=== PATIENT | female | born 1970 | race African-American/Black ===

== ENCOUNTER 2016-12-10 10:01 | Inpatient (IN) | payer MEDICAID ==
[~2016-12-10] VITALS: Ht 160 cm; Wt 88.5 kg
[2016-12-10] MEDS ORDERED: ONDANSETRON HCL 4MG/2ML VIAL IV STA (11:35)
[2016-12-10] MEDS ORDERED: MORPHINE SULFATE 4 MG/ML CPJ (NOT FOR IM USE) IV STA (11:35)
[2016-12-10] MEDS ORDERED: SODIUM CHLORIDE 0.9% 1,000 ML IV ONE (11:35)
[2016-12-10 12:34] LABS: CHLORIDE 100 mEq/L (98-107); INR 1.2; PROTHROMBIN TIME 12.9 sec
[2016-12-10 12:38] LABS: CARBON DIOXIDE 26 mEq/L (21-32)
[2016-12-10 12:52] LABS: BASOPHILS % 0.6 % (0.0-2.0); EOSINOPHILS % 0.1 % (0.0-5.0); HEMATOCRIT. 28.1 % (36.0-48.0); HEMOGLOBIN. 8.7 g/dL (12.0-16.0); MEAN CORPUSCULAR HEMOGLOBIN 20.2 pg (28.0-32.0); MEAN CORPUSCULAR VOLUME 65.1 fL (81.0-99.0); MEAN PLATELET VOLUME 7.4 fl (7.4-10.4); MONOCYTES % 7.7 % (2.0-8.0); NEUTROPHILS % 80.6 % (40.0-76.0); PLATELET 840 x1000/uL (130-400); RED BLOOD CELL COUNT 4.31 mill/uL (4.2-5.4); RED CELL DISTRIBUTION WIDTH 17.2 % (11.6-14.6)
[2016-12-10 13:40] LABS: CLARITY URINE CLOUDY (CLEAR); COLOR URINE DARK YELLOW (YELLOW); GLUCOSE URINE NEGATIVE (NEGATIVE); KETONES URINE TRACE (NEGATIVE); LEUKOCYTE ESTERASE URINE 1+ (NEGATIVE); NITRITE URINE NEGATIVE (NEGATIVE); OCCULT BLOOD URINE 2+ (NEGATIVE); PH URINE 5.5 (4.5-8.0); PROTEIN URINE 1+ (NEGATIVE); SPECIFIC GRAVITY URINE 1.024 (1.005-1.030)
[2016-12-10] MEDS ORDERED: MORPHINE SULFATE 4 MG/ML CPJ (NOT FOR IM USE) IV ONE ×2 (13:45→16:45)
[2016-12-10 14:01] LABS: PLATELET ESTIMATE MARKEDLY INCREASED
[2016-12-10 14:29] LABS: HCG SCREEN NEGATIVE
[2016-12-10] MEDS ORDERED: SODIUM CHLORIDE 0.9% 100 ML IV ONE (16:30)
[2016-12-10] MEDS ORDERED: LEVOFLOXACIN 750MG PREMIX 150 ML IV ONE (16:45)
[2016-12-10] MEDS ORDERED: METRONIDAZOLE 500 MG PREMIX 100 ML IV ONE (16:45)
[2016-12-10] MEDS ORDERED: MAGNESIUM/ALUMINUM HYDROXIDE/SIMETHICONE 30ML UDC PO PRN (17:45)
[2016-12-10] MEDS ORDERED: HYDROCODONE/ACETAMINOPHEN 5/325MG TABLET PO PRN (17:45)
[2016-12-10] MEDS ORDERED: IPRATROPIUM/ALBUTEROL 0.5-3(2.5)MG/3ML NEB INH PRN (17:45)
[2016-12-10] MEDS ORDERED: CLONIDINE 0.1MG TABLET PO PRN (17:45)
[2016-12-10 18:56] LABS: CHLORIDE 101 mEq/L (98-107)
[2016-12-10 18:59] LABS: CARBON DIOXIDE 27 mEq/L (21-32)
[2016-12-10] MEDS: ACETAMINOPHEN 325MG TABLET PO PRN (19:45)
[2016-12-10] MEDS ORDERED: KETOROLAC 30MG/ML VIAL IV ONE (20:00)
[2016-12-10 22:35] LABS: CREATINE KINASE 158 IU/L (26-192); CREATINE KINASE MB FRACTION < 0.5 ng/mL (0.5-3.6); TROPONIN I < 0.02 ng/mL (0.00-0.04)
[2016-12-11] VITALS (11 sets, daily range): BP systolic 99–111; BP diastolic 51–71
[2016-12-11 00:42] LABS: *AMPHETAMINES SCREEN URINE NEGATIVE (NEGATIVE); *BARBITURATES SCREEN URINE NEGATIVE (NEGATIVE); *BENZODIAZEPINES SCREEN URINE NEGATIVE (NEGATIVE); *COCAINE SCREEN URINE NEGATIVE (NEGATIVE); METHADONE URINE SCREEN NEGATIVE (NEGATIVE); PHENCYCLIDINE URINE SCREEN NEGATIVE (NEGATIVE)
[2016-12-11 00:53] LABS: CANNABINOID URINE SCREEN PRESUMTIVE POSITIVE (NEGATIVE); OPIATES URINE SCREEN PRESUMTIVE POSITIVE (NEGATIVE)
[2016-12-11] MEDS: SODIUM CHLORIDE 0.9% 1,000 ML IV SCH ×3 (00:54→23:58)
[2016-12-11] MEDS: MORPHINE SULFATE 2 MG/ML CPJ (NOT FOR IM USE) IV PRN ×4 (03:50→19:17)
[2016-12-11] MEDS: METRONIDAZOLE 500 MG PREMIX 100 ML IV SCH ×3 (05:09→23:57)
[2016-12-11 06:18] LABS: BASOPHILS % 0.3 % (0.0-2.0); HEMATOCRIT. 25.3 % (36.0-48.0); HEMOGLOBIN. 7.9 g/dL (12.0-16.0); LYMPHOCYTES % 8.2 % (20.0-50.0); MEAN CORPUSCULAR HEMOGLOBIN 20.5 pg (28.0-32.0); MEAN CORPUSCULAR VOLUME 65.5 fL (81.0-99.0); MEAN PLATELET VOLUME 7.4 fl (7.4-10.4); MONOCYTES % 5.1 % (2.0-8.0); NEUTROPHILS % 86.4 % (40.0-76.0); PLATELET 738 x1000/uL (130-400); RED BLOOD CELL COUNT 3.86 mill/uL (4.2-5.4); RED CELL DISTRIBUTION WIDTH 17.2 % (11.6-14.6)
[2016-12-11 06:25] LABS: CREATINE KINASE 198 IU/L (26-192); CREATINE KINASE MB FRACTION 1.1 ng/mL (0.5-3.6); HDL CHOLESTEROL 19 mg/dL (40-59); LDL CHOLESTEROL 123 mg/dL (5-100); TROPONIN I < 0.02 ng/mL (0.00-0.04)
[2016-12-11] MEDS: ENOXAPARIN 40MG/0.4ML SYR SUBCUT SCH (08:37)
[2016-12-11] MEDS: LEVOFLOXACIN 500MG PREMIX 100 ML IV SCH (16:49)
[2016-12-11] MEDS ORDERED: LEVOFLOXACIN 500MG PREMIX 100 ML IV SCH (17:45)
[2016-12-11] MEDS: ATORVASTATIN CALCIUM 10MG TABLET PO SCH (20:34)
[2016-12-12] VITALS: BP 111/61
[2016-12-12] MEDS: MORPHINE SULFATE 2 MG/ML CPJ (NOT FOR IM USE) IV PRN ×5 (00:15→21:23)
[2016-12-12 04:00] VITALS: BP 113/60
[2016-12-12] MEDS: METRONIDAZOLE 500 MG PREMIX 100 ML IV SCH ×3 (06:10→21:04)
[2016-12-12 06:47] LABS: BASOPHILS % 0.4 % (0.0-2.0); EOSINOPHILS % 0.1 % (0.0-5.0); HEMATOCRIT. 28.6 % (36.0-48.0); HEMOGLOBIN. 8.9 g/dL (12.0-16.0); LYMPHOCYTES % 11.8 % (20.0-50.0); MEAN CORPUSCULAR HEMOGLOBIN 20.8 pg (28.0-32.0); MEAN CORPUSCULAR VOLUME 67.1 fL (81.0-99.0); MEAN PLATELET VOLUME 7.6 fl (7.4-10.4); MONOCYTES % 3.9 % (2.0-8.0); NEUTROPHILS % 83.8 % (40.0-76.0); PLATELET 711 x1000/uL (130-400); RED BLOOD CELL COUNT 4.27 mill/uL (4.2-5.4); RED CELL DISTRIBUTION WIDTH 18.4 % (11.6-14.6)
[2016-12-12 08:00] VITALS: BP 120/70
[2016-12-12 08:13] LABS: CARBON DIOXIDE 25 mEq/L (21-32); CHLORIDE 103 mEq/L (98-107)
[2016-12-12] MEDS: SODIUM CHLORIDE 0.9% 1,000 ML IV SCH (09:23)
[2016-12-12] MEDS: ENOXAPARIN 40MG/0.4ML SYR SUBCUT SCH (09:24)
[2016-12-12] MEDS ORDERED: POTASSIUM CHLORIDE 20MEQ TABLET SR PO NR (10:34)
[2016-12-12 12:00] VITALS: BP 124/66
[2016-12-12] MEDS: LEVOFLOXACIN 500MG PREMIX 100 ML IV SCH (15:11)
[2016-12-12 16:00] VITALS: BP 119/75
[2016-12-12] MEDS ORDERED: MAGNESIUM 1 G PREMIX 100 ML IV NR (16:00)
[2016-12-12] MEDS: ACETAMINOPHEN 325MG TABLET PO PRN (17:52)
[2016-12-12 20:00] VITALS: BP 107/69
[2016-12-12] MEDS: ATORVASTATIN CALCIUM 10MG TABLET PO SCH (21:04)
[2016-12-13] VITALS (11 sets, daily range): BP systolic 105–130; BP diastolic 62–78
[2016-12-13] MEDS: SODIUM CHLORIDE 0.9% 1,000 ML IV SCH ×3 (03:08→21:38)
[2016-12-13] MEDS: METRONIDAZOLE 500 MG PREMIX 100 ML IV SCH ×3 (05:24→21:37)
[2016-12-13] MEDS: MORPHINE SULFATE 2 MG/ML CPJ (NOT FOR IM USE) IV PRN ×4 (05:37→20:42)
[2016-12-13 06:56] LABS: BASOPHILS % 0.4 % (0.0-2.0); EOSINOPHILS % 0.2 % (0.0-5.0); HEMATOCRIT. 26.8 % (36.0-48.0); HEMOGLOBIN. 8.4 g/dL (12.0-16.0); LYMPHOCYTES % 10.1 % (20.0-50.0); MEAN CORPUSCULAR HEMOGLOBIN 20.6 pg (28.0-32.0); MEAN CORPUSCULAR VOLUME 65.8 fL (81.0-99.0); MEAN PLATELET VOLUME 7.6 fl (7.4-10.4); MONOCYTES % 6.3 % (2.0-8.0); PLATELET 644 x1000/uL (130-400); RED BLOOD CELL COUNT 4.07 mill/uL (4.2-5.4); RED CELL DISTRIBUTION WIDTH 18.2 % (11.6-14.6)
[2016-12-13 07:54] LABS: CARBON DIOXIDE 24 mEq/L (21-32); CHLORIDE 106 mEq/L (98-107)
[2016-12-13] MEDS: ENOXAPARIN 40MG/0.4ML SYR SUBCUT SCH (08:51)
[2016-12-13] MEDS: ACETAMINOPHEN 325MG TABLET PO PRN (11:32)
[2016-12-13] MEDS: LEVOFLOXACIN 500MG PREMIX 100 ML IV SCH (15:24)
[2016-12-13] MEDS: ATORVASTATIN CALCIUM 10MG TABLET PO SCH (20:43)
[2016-12-14] VITALS: BP 123/77
[2016-12-14] MEDS: MORPHINE SULFATE 2 MG/ML CPJ (NOT FOR IM USE) IV PRN ×5 (01:54→20:45)
[2016-12-14 04:00] VITALS: BP 108/60
[2016-12-14] MEDS: METRONIDAZOLE 500 MG PREMIX 100 ML IV SCH ×3 (05:31→23:01)
[2016-12-14 06:49] LABS: HEMATOCRIT 29.1 % (36.0-48.0); HEMOGLOBIN 9.4 g/dL (12.0-16.0)
[2016-12-14 07:19] VITALS: BP 115/71
[2016-12-14 08:36] LABS: TOTAL IRON BINDING CAPACITY 142 ug/dL (250-450)
[2016-12-14] MEDS ORDERED: DIATR MEGLU/DIATRIZOATE SOLN 30ML PO SCH (09:45)
[2016-12-14] MEDS: SODIUM CHLORIDE 0.9% 1,000 ML IV SCH ×2 (09:58→18:32)
[2016-12-14] MEDS: ENOXAPARIN 40MG/0.4ML SYR SUBCUT SCH (09:59)
[2016-12-14 10:31] LABS: HEMATOCRIT. 30.1 % (36.0-48.0); HEMOGLOBIN. 9.5 g/dL (12.0-16.0); MEAN CORPUSCULAR HEMOGLOBIN 21.3 pg (28.0-32.0); MEAN CORPUSCULAR VOLUME 67.6 fL (81.0-99.0); PLATELET 637 x1000/uL (130-400); RED BLOOD CELL COUNT 4.45 mill/uL (4.2-5.4); RED CELL DISTRIBUTION WIDTH 19.8 % (11.6-14.6)
[2016-12-14 11:50] VITALS: BP 117/69
[2016-12-14 14:37] LABS: NUCLEATED RED BLOOD CELLS 1 /100 WBC
[2016-12-14 14:38] LABS: PLATELET ESTIMATE SLIGHTLY INCREASED
[2016-12-14 16:02] VITALS: BP 124/70
[2016-12-14] MEDS: LEVOFLOXACIN 500MG PREMIX 100 ML IV SCH (16:35)
[2016-12-14 20:00] VITALS: BP 142/79
[2016-12-14] MEDS: ATORVASTATIN CALCIUM 10MG TABLET PO SCH (20:34)
[2016-12-15] VITALS: BP 137/76
[2016-12-15] MEDS: SODIUM CHLORIDE 0.9% 1,000 ML IV SCH ×2 (00:54→16:36)
[2016-12-15] MEDS: MORPHINE SULFATE 2 MG/ML CPJ (NOT FOR IM USE) IV PRN ×6 (00:55→23:39)
[2016-12-15] MEDS ORDERED: DIATR MEGLU/DIATRIZOATE SOLN 30ML PO NR (03:15)
[2016-12-15 04:00] VITALS: BP 145/82
[2016-12-15] MEDS: METRONIDAZOLE 500 MG PREMIX 100 ML IV SCH ×3 (05:17→21:18)
[2016-12-15 07:11] LABS: BASOPHILS % 0.6 % (0.0-2.0); EOSINOPHILS % 0.6 % (0.0-5.0); HEMATOCRIT. 29.1 % (36.0-48.0); HEMOGLOBIN. 9.4 g/dL (12.0-16.0); LYMPHOCYTES % 14.3 % (20.0-50.0); MEAN CORPUSCULAR HEMOGLOBIN 21.6 pg (28.0-32.0); MEAN CORPUSCULAR VOLUME 67.2 fL (81.0-99.0); MEAN PLATELET VOLUME 7.5 fl (7.4-10.4); MONOCYTES % 5.8 % (2.0-8.0); NEUTROPHILS % 78.7 % (40.0-76.0); PLATELET 631 x1000/uL (130-400); RED BLOOD CELL COUNT 4.33 mill/uL (4.2-5.4); RED CELL DISTRIBUTION WIDTH 19.7 % (11.6-14.6)
[2016-12-15 08:00] VITALS: BP 124/82
[2016-12-15] MEDS: ENOXAPARIN 40MG/0.4ML SYR SUBCUT SCH (08:11)
[2016-12-15] MEDS: ONDANSETRON HCL 4MG/2ML VIAL IV PRN (12:32)
[2016-12-15] MEDS: FERROUS SULFATE 325MG TABLET PO SCH ×2 (12:32→17:50)
[2016-12-15] MEDS ORDERED: IOHEXOL-300 100 ML BOTTLE ONE (14:13)
[2016-12-15] MEDS ORDERED: SODIUM CHLORIDE 0.9% 10ML VIAL ONE (14:13)
[2016-12-15] MEDS: LEVOFLOXACIN 500MG PREMIX 100 ML IV SCH (16:36)
[2016-12-15 20:00] VITALS: BP 116/72
[2016-12-15] MEDS: ATORVASTATIN CALCIUM 10MG TABLET PO SCH (21:18)
[2016-12-15] MEDS: ASCORBIC ACID 500 MG TABLET PO SCH (21:18)
[2016-12-15 23:34] VITALS: BP 124/70
[2016-12-16] VITALS (11 sets, daily range): BP systolic 113–140; BP diastolic 67–95
[2016-12-16] MEDS: MORPHINE SULFATE 2 MG/ML CPJ (NOT FOR IM USE) IV PRN ×3 (03:50→20:18)
[2016-12-16] MEDS: ACETAMINOPHEN 325MG TABLET PO PRN (03:50)
[2016-12-16] MEDS: SODIUM CHLORIDE 0.9% 1,000 ML IV SCH ×2 (03:53→10:38)
[2016-12-16] MEDS: METRONIDAZOLE 500 MG PREMIX 100 ML IV SCH ×3 (05:17→22:35)
[2016-12-16 06:31] LABS: BASOPHILS % 0.8 % (0.0-2.0); EOSINOPHILS % 0.7 % (0.0-5.0); HEMOGLOBIN. 10.3 g/dL (12.0-16.0); MEAN CORPUSCULAR HEMOGLOBIN 21.6 pg (28.0-32.0); MEAN CORPUSCULAR VOLUME 68.3 fL (81.0-99.0); MEAN PLATELET VOLUME 7.5 fl (7.4-10.4); MONOCYTES % 5.3 % (2.0-8.0); NEUTROPHILS % 78.2 % (40.0-76.0); PLATELET 703 x1000/uL (130-400); RED BLOOD CELL COUNT 4.77 mill/uL (4.2-5.4)
[2016-12-16 07:10] LABS: HEMATOCRIT. 32.6 % (36.0-48.0)
[2016-12-16 07:39] LABS: CARBON DIOXIDE 27 mEq/L (21-32); CHLORIDE 99 mEq/L (98-107)
[2016-12-16] MEDS: FERROUS SULFATE 325MG TABLET PO SCH ×3 (08:50→17:40)
[2016-12-16] MEDS: ENOXAPARIN 40MG/0.4ML SYR SUBCUT SCH (08:50)
[2016-12-16] MEDS: ASCORBIC ACID 500 MG TABLET PO SCH ×2 (08:50→21:00)
[2016-12-16] MEDS ORDERED: DIPHENHYDRAMINE 50MG/ML VIAL ONE (12:24)
[2016-12-16] MEDS ORDERED: FENTANYL CITRATE/PF 50MCG/ML 2ML VIAL ONE (12:25)
[2016-12-16] MEDS ORDERED: POTASSIUM CHLORIDE INJ 40 MEQ in DEXT 5% WATER 500 ML IV SCH (13:00)
[2016-12-16] MEDS ORDERED: SODIUM BICARBONATE 4% (2.4MEQ) 5ML VIAL IV ONE (13:43)
[2016-12-16] MEDS ORDERED: LIDOCAINE HCL 1% 20ML VIAL (Pyxis) INJ ONE (13:43)
[2016-12-16] MEDS ORDERED: SODIUM CHLORIDE 0.9% 10ML VIAL ONE (13:43)
[2016-12-16] MEDS ORDERED: FENTANYL CITRATE/PF 50MCG/ML 2ML VIAL IV SCH (13:45)
[2016-12-16] MEDS ORDERED: DIPHENHYDRAMINE 50MG/ML VIAL IV SCH (13:45)
[2016-12-16] MEDS: ONDANSETRON HCL 4MG/2ML VIAL IV PRN (20:15)
[2016-12-16] MEDS: LEVOFLOXACIN 500MG PREMIX 100 ML IV SCH (20:20)
[2016-12-16] MEDS: ATORVASTATIN CALCIUM 10MG TABLET PO SCH (21:00)
[2016-12-17] VITALS (8 sets, daily range): BP systolic 118–134; BP diastolic 77–84
[2016-12-17] MEDS: MORPHINE SULFATE 2 MG/ML CPJ (NOT FOR IM USE) IV PRN ×6 (00:52→23:39)
[2016-12-17] MEDS: FERROUS SULFATE 325MG TABLET PO SCH ×3 (05:16→18:14)
[2016-12-17] MEDS: ONDANSETRON HCL 4MG/2ML VIAL IV PRN (06:02)
[2016-12-17] MEDS: METRONIDAZOLE 500 MG PREMIX 100 ML IV SCH ×3 (06:11→21:48)
[2016-12-17] MEDS: SODIUM CHLORIDE 0.9% 1,000 ML IV SCH ×2 (06:13→18:14)
[2016-12-17 06:57] LABS: BASOPHILS % 0.6 % (0.0-2.0); EOSINOPHILS % 0.5 % (0.0-5.0); HEMATOCRIT. 35.4 % (36.0-48.0); HEMOGLOBIN. 11.1 g/dL (12.0-16.0); LYMPHOCYTES % 18.5 % (20.0-50.0); MEAN CORPUSCULAR HEMOGLOBIN 21.4 pg (28.0-32.0); MEAN CORPUSCULAR VOLUME 68.4 fL (81.0-99.0); MEAN PLATELET VOLUME 7.6 fl (7.4-10.4); MONOCYTES % 4.2 % (2.0-8.0); NEUTROPHILS % 76.2 % (40.0-76.0); PLATELET 739 x1000/uL (130-400); RED BLOOD CELL COUNT 5.18 mill/uL (4.2-5.4); RED CELL DISTRIBUTION WIDTH 20.9 % (11.6-14.6)
[2016-12-17 07:45] LABS: CARBON DIOXIDE 28 mEq/L (21-32); CHLORIDE 97 mEq/L (98-107)
[2016-12-17] MEDS: ASCORBIC ACID 500 MG TABLET PO SCH ×2 (08:50→21:53)
[2016-12-17] MEDS: ENOXAPARIN 40MG/0.4ML SYR SUBCUT SCH (08:50)
[2016-12-17] MEDS ORDERED: POTASSIUM CHLORIDE INJ 40 MEQ in DEXT 5% WATER 250 ML IV NR (12:00)
[2016-12-17] MEDS: LEVOFLOXACIN 500MG PREMIX 100 ML IV SCH (18:14)
[2016-12-17] MEDS: ATORVASTATIN CALCIUM 10MG TABLET PO SCH (21:48)
[2016-12-17] MEDS: ACETAMINOPHEN 325MG TABLET PO PRN (21:48)
[2016-12-18 04:00] VITALS: BP 127/87
[2016-12-18] MEDS: MORPHINE SULFATE 2 MG/ML CPJ (NOT FOR IM USE) IV PRN (04:56)
[2016-12-18 06:16] LABS: BASOPHILS % 0.6 % (0.0-2.0); EOSINOPHILS % 0.7 % (0.0-5.0); HEMATOCRIT. 31.9 % (36.0-48.0); HEMOGLOBIN. 10.2 g/dL (12.0-16.0); LYMPHOCYTES % 20.2 % (20.0-50.0); MEAN CORPUSCULAR HEMOGLOBIN 21.9 pg (28.0-32.0); MEAN CORPUSCULAR VOLUME 68.2 fL (81.0-99.0); MEAN PLATELET VOLUME 7.4 fl (7.4-10.4); NEUTROPHILS % 71.5 % (40.0-76.0); PLATELET 674 x1000/uL (130-400); RED BLOOD CELL COUNT 4.67 mill/uL (4.2-5.4); RED CELL DISTRIBUTION WIDTH 20.9 % (11.6-14.6)
[2016-12-18 06:19] LABS: CARBON DIOXIDE 29 mEq/L (21-32); CHLORIDE 102 mEq/L (98-107)
[2016-12-18] MEDS: SODIUM CHLORIDE 0.9% 1,000 ML IV SCH (06:29)
[2016-12-18] MEDS: METRONIDAZOLE 500 MG PREMIX 100 ML IV SCH (06:29)
[2016-12-18 08:00] VITALS: BP 123/84
[2016-12-18] MEDS: ASCORBIC ACID 500 MG TABLET PO SCH (08:11)
[2016-12-18] MEDS: FERROUS SULFATE 325MG TABLET PO SCH ×2 (08:11→12:24)
[2016-12-18] MEDS: ENOXAPARIN 40MG/0.4ML SYR SUBCUT SCH (08:12)
[2016-12-18] MEDS: ONDANSETRON HCL 4MG/2ML VIAL IV PRN (08:17)
[2016-12-18 11:20] VITALS: BP 121/78
[2016-12-18 11:38] VITALS: BP 121/78
[2016-12-18] MEDS: ACETAMINOPHEN 325MG TABLET PO PRN (12:24)
[2016-12-18] MEDS ORDERED: METOCLOPRAMIDE HCL 5MG TABLET PO NR (12:37)
[2016-12-18 13:11] LABS: HGB A 97.7 % (94.0-98.0); HGB A2 2.3 % (0.7-3.1); HGB SOLUBILITY Negative (Negative)
== END 2016-12-18 13:50 | disposition home or self-care (01) | DRG 229 ==
LOC: ER 12:05 → 8WST 16:35 → ENRESERV 22:10
PROVIDERS: ADMIT Internal Medicine; ATTEND Internal Medicine
PROC: 30233N1 Transfusion of Nonautologous Red Blood Cells into Peripheral Vein, Percutaneous Approach (ICD-10-PCS; principal; 2016-12-11)
PROC: 0WJJ3ZZ Inspection of Pelvic Cavity, Percutaneous Approach (ICD-10-PCS; 2016-12-16)
DX: K57.80 Diverticulitis of intestine, part unspecified, with perforation and abscess without bleeding (principal); R65.11 Systemic inflammatory response syndrome (SIRS) of non-infectious origin with acute organ dysfunction; E43 Unspecified severe protein-calorie malnutrition; N13.30 Unspecified hydronephrosis; N39.0 Urinary tract infection, site not specified; R71.0 Precipitous drop in hematocrit; E83.42 Hypomagnesemia; R16.0 Hepatomegaly, not elsewhere classified; F12.90 Cannabis use, unspecified, uncomplicated; K80.20 Calculus of gallbladder without cholecystitis without obstruction; D50.9 Iron deficiency anemia, unspecified; D72.829 Elevated white blood cell count, unspecified; D75.89 Other specified diseases of blood and blood-forming organs; E87.6 Hypokalemia; I25.10 Atherosclerotic heart disease of native coronary artery without angina pectoris; E78.5 Hyperlipidemia, unspecified; L02.211 Cutaneous abscess of abdominal wall; N18.9 Chronic kidney disease, unspecified; Z93.3 Colostomy status; Z68.34 Body mass index [BMI] 34.0-34.9, adult
CPT/HCPCS: 36415; 49180; 74176; 74177; 77012; 80048; 80053; 80061; 80305; 81001; 82270; 82550; 82553; 82728; 83021; 83540; 83550; 83605; 83690; 83735; 84484; 84703; 85014; 85018; 85025; 85044; 85610; 85660; 86850; 86900; 86920; 87040; 87086; 93970; 96361; 96365; 96367; 96375; 96376; 99285; A4216; J1200; J1650; J1885; J1956; J2270; J2405; J3010; J3475; J3480; J3490; J7030; J7040; J7050; J7060; J8597; P9016; Q9963; Q9967